=== PATIENT | female | born 1965 | race Caucasian/White ===

== ENCOUNTER 2021-07-19 14:20 | Emergency (ER) | payer BC ==
[~2021-07-19] VITALS: Ht 160 cm; Wt 123.8 kg
[2021-07-19] MEDS ORDERED: IOHEXOL 350 MG/ML 100 ML (OMNIPAQUE 350) VIAL IV ONE (14:45)
[2021-07-19] MEDS ORDERED: HOLD METFORMIN - RECEIVED CONTRAST 20 ML VIAL IV SCH (14:45)
[2021-07-19] MEDS ORDERED: ONDANSETRON 4 MG/2 ML (SDV) Z0FRAN IVP ONE (14:45)
[2021-07-19] MEDS ORDERED: NS 100 ML (IVPB) BAG IV ONE (14:45)
[2021-07-19] MEDS ORDERED: diphenhydrAMINE 50 MG/ML INJ (BENADRYL) IVP ONE (14:45)
[2021-07-19 14:49] LABS: BASOPHILS # (AUTO) 0.1 10^3/uL (0.0-0.1); BASOPHILS % (AUTO) 1 % (0-10); EOSINOPHILS # (AUTO) 0.5 10^3/uL (0.0-0.3); EOSINOPHILS % (AUTO) 4 % (0-10); HEMATOCRIT 48 % (35-52); HEMOGLOBIN 15.8 g/dL (11.5-16.0); LYMPHOCYTES # (AUTO) 3.6 10^3/uL (1.0-4.0); LYMPHOCYTES % (AUTO) 30 % (12-44); MEAN CORPUSCULAR HEMOGLOBIN 30 pg (25-34); MEAN CORPUSCULAR HGB CONC 33 g/dL (32-36); MEAN CORPUSCULAR VOLUME 91 fL (80-99); MONOCYTES # (AUTO) 0.7 10^3/uL (0.0-1.0); MONOCYTES % (AUTO) 5 % (0-12); NEUTROPHILS # (AUTO) 7.1 10^3/uL (1.8-7.8); NEUTROPHILS % (AUTO) 59 % (42-75); PLATELET COUNT 362 10^3/uL (130-400)
--- NOTE | 2021-07-19 14:50 | ED Dyspnea ---
General Stated Complaint: CHEST CT W/CONTRAST Source of Information: Patient Exam Limitations: No Limitations History of Present Illness Date Seen by Provider: Jul 19, 2021 Time Seen by Provider: 14:45 Initial Comments To ER by private vehicle with reports that she needs a CT of her chest with contrast. She follows with nurse practitioner Love Burch out of [facility]. She was diagnosed with COVID on June 17. She has ongoing dyspnea on exertion with intermittent chest pain. Her most recent episode of chest pain was 07/15/2021. It seemed to be brought about by movement while at work. She has not had any chest pain since then but she has had ongoing dyspnea with exertion. She is unvaccinated against COVID, she has hypertension and obesity. She continues to smoke 1 pack of cigarettes per day. She is concerned because she is still short of breath. Timing/Duration: 1 Week Severity: Moderate Activities at Onset: None Prior Episodes/Possible Cause: No Prior Episodes Associated Symptoms: Cough Allergies and Home Medications Allergies Coded Allergies: No Known Drug Allergies (Unverified , 07/19/21) Patient Home Medication List Home Medication List Reviewed: Yes Review of Systems Review of Systems Constitutional: see HPI; No chills, No fever EENTM: see HPI Respiratory: see HPI, cough Cardiovascular: no symptoms reported Genitourinary: no symptoms reported Musculoskeletal: no symptoms reported Skin: no symptoms reported Psychiatric/Neurological: No Symptoms Reported Endocrine: No Symptoms Reported Hematologic/Lymphatic: No Symptoms Reported Physical Exam Vital Signs Vital Signs - First Documented 07/19/21 14:37 Temp 35.9 Pulse 72 Resp 20 B/P (MAP) 159/90 (113) Pulse Ox 97 O2 Delivery Room Air Capillary Refill : Height, Weight, BMI Height: '" Weight: lbs. oz. kg; BMI Method: General Appearance: No Apparent Distress, WD/WN, Other (Oxygen is 97% on room air. Heart rate is 75.) HEENT: PERRL/EOMI, TMs Normal Neck: Full Range of Motion, Normal Inspection Respiratory: Normal Breath Sounds, No Accessory Muscle Use, No Respiratory Distress Cardiovascular: Regular Rate, Rhythm, Normal Peripheral Pulses Gastrointestinal: Normal Bowel Sounds, Non Tender, Soft Neurologic/Psychiatric: Alert, Oriented x3 Skin: Normal Color, Warm/Dry Progress/Results/Core Measures Results/Orders Lab Results Laboratory Tests Test 07/19/21 14:40 Range/Units White Blood Count 12.0 H 4.3-11.0 10^3/uL Red Blood Count 5.25 H 3.80-5.11 10^6/uL Hemoglobin 15.8 11.5-16.0 g/dL Hematocrit 48 35-52 % Mean Corpuscular Volume 91 80-99 fL Mean Corpuscular Hemoglobin 30 25-34 pg Mean Corpuscular Hemoglobin Concent 33 32-36 g/dL Red Cell Distribution Width 12.9 10.0-14.5 % Platelet Count 362 130-400 10^3/uL Mean Platelet Volume 10.0 9.0-12.2 fL Immature Granulocyte % (Auto) 1 % Neutrophils (%) (Auto) 59 42-75 % Lymphocytes (%) (Auto) 30 12-44 % Monocytes (%) (Auto) 5 0-12 % Eosinophils (%) (Auto) 4 0-10 % Basophils (%) (Auto) 1 0-10 % Neutrophils # (Auto) 7.1 1.8-7.8 10^3/uL Lymphocytes # (Auto) 3.6 1.0-4.0 10^3/uL Monocytes # (Auto) 0.7 0.0-1.0 10^3/uL Eosinophils # (Auto) 0.5 H 0.0-0.3 10^3/uL Basophils # (Auto) 0.1 0.0-0.1 10^3/uL Immature Granulocyte # (Auto) 0.1 0.0-0.1 10^3/uL Sodium Level 137 135-145 MMOL/L Potassium Level 4.0 3.6-5.0 MMOL/L Chloride Level 101 98-107 MMOL/L Carbon Dioxide Level 25 21-32 MMOL/L Anion Gap 11 5-14 MMOL/L Blood Urea Nitrogen 12 7-18 MG/DL Creatinine 0.66 0.60-1.30 MG/DL Estimat Glomerular Filtration Rate 104 BUN/Creatinine Ratio 18 Glucose Level 115 H 70-105 MG/DL Calcium Level 10.0 8.5-10.1 MG/DL Troponin I < 0.028 <0.028 NG/ML C-Reactive Protein High Sensitivity 0.32 0.00-0.50 MG/DL B-Type Natriuretic Peptide 32.3 <100.0 PG/ML Procalcitonin 0.04 <0.10 NG/ML My Orders Orders - NEREIDA ESPARZA APRN Cbc With Automated Diff (07/19/21 14:42) Hs C Reactive Protein (07/19/21 14:42) Procalcitonin (Pct) (07/19/21 14:42) Basic Metabolic Panel (07/19/21 14:42) Ed Iv/Invasive Line Start (07/19/21 14:42) Ekg Tracing (07/19/21 14:42) Ct Angio Chest W (07/19/21 14:42) Troponin I [place] (07/19/21 14:42) Bnp Marlon (07/19/21 14:42) Diphenhydramine Injection (Benadryl Inje (07/19/21 14:45) Ondansetron Injection (Zofran Injectio (07/19/21 14:45) Iohexol Injection (Omnipaque 350 Mg/Ml 1 (07/19/21 14:45) Received Contrast (Hold Metformin- Contr (07/19/21 14:45) Ns (Ivpb) (Sodium Chloride 0.9% Ivpb Bag (07/19/21 14:45) Medications Given in ED Current Medications Medications Dose Ordered Sig/Juan Ramon Route Start Time Stop Time Status Last Admin Dose Admin Diphenhydramine HCl 25 mg ONCE ONCE IVP 07/19/21 14:45 07/19/21 14:46 DC 07/19/21 15:01 25 MG Iohexol 100 ml ONCE ONCE IV 07/19/21 14:45 07/19/21 14:55 DC 07/19/21 15:22 87 ML Ondansetron HCl 4 mg ONCE ONCE IVP 07/19/21 14:45 07/19/21 14:46 DC 07/19/21 15:01 4 MG Sodium Chloride 100 ml ONCE ONCE IV 07/19/21 14:45 07/19/21 14:55 DC 07/19/21 15:22 80 ML Vital Signs/I&O 07/19/21 14:37 Temp 35.9 Pulse 72 Resp 20 B/P (MAP) 159/90 (113) Pulse Ox 97 O2 Delivery Room Air Departure Communication (Admissions) Family Conversation EKG shows sinus rhythm, normal intervals, no ectopy, no ST segment change. NAME: RAFFAELE PIEDRA MED REC#: [id number] PT STATUS: REG ER : 1965 PHYSICIAN: NEREIDA ESPARZA APRN ADMIT DATE: 07/19/21/ER Draft Date of Exam:07/19/21 CT ANGIO CHEST W PROCEDURE: CT angiography of the chest with contrast. TECHNIQUE: Multiple contiguous axial images were obtained through the chest after uneventful bolus administration of intravenous contrast. 3D reconstructed CTA MIP acquisitions were also performed. Auto Exposure Controls were utilized during the CT exam to meet ALARA standards for radiation dose reduction. INDICATION: Shortness of breath. Elevated D-dimer. Recent pneumonia. COMPARISON: None. FINDINGS: This helical CT pulmonary angiogram is diagnostic to the subsegmental level branches of the pulmonary artery and demonstrates no pulmonary emboli. The heart and great vessels are unremarkable. There is no pericardial effusion. There is no axillary, mediastinal or hilar adenopathy. The lungs demonstrate no consolidation, nodules or other parenchymal abnormality. No pleural effusion is seen. Osseous structures appear normal. There is hepatic steatosis. IMPRESSION: 1. No acute pulmonary embolus. Negative CT chest. 2. Hepatic steatosis. Dictated on workstation # [id number] Dict: 07/19/21 1532 Trans: 07/19/21 1536 [facility] [id number] Interpreted by: HEIDE CLAROS DO Electronically signed by: Impression Primary Impression: WEBER (dyspnea on exertion) Additional Impression: Post-COVID chronic dyspnea Disposition: 01 HOME, SELF-CARE Condition: Stable Departure-Patient Inst. Decision time for Depature: 15:39 Referrals: NO,LOCAL PHYSICIAN (PCP) Primary Care Physician Patient Instructions: Shortness of Breath, Adult ED Add. Discharge Instructions: 1. Medication as directed. Return to ER for any concerns. Take the steroids as directed. Follow-up with your doctor next week. Scripts Prednisone (Prednisone) 20 Mg Tab 40 MG PO DAILY, #6 TAB 0 Refills Prov: NEREIDA ESPARZA APRN 07/19/21 NEREIDA ESPARZA APRN Jul 19, 2021 14:49
[2021-07-19 15:02] LABS: CHLORIDE 101 MMOL/L (98-107); SODIUM 137 MMOL/L (135-145)
[2021-07-19 15:04] LABS: GLUCOSE 115 MG/DL (70-105)
[2021-07-19 15:05] LABS: CARBON DIOXIDE 25 MMOL/L (21-32)
[2021-07-19 15:07] LABS: CREATININE SERUM 0.66 MG/DL (0.60-1.30); GFR ESTIMATED 104
[2021-07-19 15:09] LABS: BUN/CREATININE RATIO 18
--- NOTE | 2021-07-19 15:36 | Diagnostic Imaging Report ---
PROCEDURE: CT angiography of the chest with contrast. TECHNIQUE: Multiple contiguous axial images were obtained through the chest after uneventful bolus administration of intravenous contrast. 3D reconstructed CTA MIP acquisitions were also performed. Auto Exposure Controls were utilized during the CT exam to meet ALARA standards for radiation dose reduction. INDICATION: Shortness of breath. Elevated D-dimer. Recent pneumonia. COMPARISON: None. FINDINGS: This helical CT pulmonary angiogram is diagnostic to the subsegmental level branches of the pulmonary artery and demonstrates no pulmonary emboli. The heart and great vessels are unremarkable. There is no pericardial effusion. There is no axillary, mediastinal or hilar adenopathy. The lungs demonstrate no consolidation, nodules or other parenchymal abnormality. No pleural effusion is seen. Osseous structures appear normal. There is hepatic steatosis. IMPRESSION: 1. No acute pulmonary embolus. Negative CT chest. 2. Hepatic steatosis. Dictated by: Dictated on workstation # [id number]
[2021-07-19] MEDS ORDERED: PRD20T PO (15:41)
[2021-07-19 15:52] VITALS: BP 114/55
== END 2021-07-19 15:52 | disposition home or self-care (01) ==
LOC: EDUNIT# 14:20 → ER 14:23
DX: R06.09 Other forms of dyspnea (principal); U09.9 Post COVID-19 condition, unspecified; I10 Essential (primary) hypertension; E66.9 Obesity, unspecified; F17.210 Nicotine dependence, cigarettes, uncomplicated
CPT/HCPCS: 36415; 71275; 80048; 83880; 84145; 84484; 85025; 86141; 93005

== ENCOUNTER → 2021-10-19 | Outpatient (CLI) | payer BC ==
[~2021-10-19] MED LIST: PRD20T PO
--- NOTE | 2021-10-19 11:15 | Diagnostic Imaging Report ---
EXAM: HAND 3 VIEW RIGHT INDICATION: Fall. Right hand pain. COMPARISON: None. FINDINGS: No fractures or malalignment. Scattered degenerative changes in the IP joints are greatest in the right 3rd DIP. Soft tissue shadows are unremarkable. IMPRESSION: No acute radiographic findings in the right hand. Dictated by: Dictated on workstation # [id number]
== END ==
LOC: RAD FS 10:18
PROVIDERS: ATTEND Nurse Practitioner Community Health
DX: M79.641 Pain in right hand (principal); W19.XXXA Unspecified fall, initial encounter
CPT/HCPCS: 73130

== ENCOUNTER 2022-08-06 02:28 | Emergency (ER) | payer OTHER, BC ==
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
[2022-08-06 03:18] VITALS: BP 178/59
--- NOTE | 2022-08-06 07:03 | Diagnostic Imaging Report ---
EXAMINATION: CT head without contrast. TECHNIQUE: Multiple contiguous axial images were obtained through the brain without the use of intravenous contrast. All CT scans use one or more of the following dose optimizing techniques: automated exposure control, MA and/or KvP adjustment based on patient size and exam type or iterative reconstruction. HISTORY: Head pain after injury COMPARISON: None available. FINDINGS: The ventricles and sulci are normal. No abnormal attenuation of brain parenchyma is present. No acute intracranial hemorrhage or abnormal extra-axial fluid collections are present. No hyperdense vessel. The calvarium is intact. The mastoid air cells are clear. There is mucosal thickening of the paranasal sinuses. The orbits are normal. IMPRESSION: 1. No acute intracranial abnormality. 2. Agree with preliminary interpretation. Dictated by: Dictated on workstation # [id number]
== END 2022-08-06 03:20 | disposition home or self-care (01) ==
LOC: EDUNIT# 02:28 → ER FS 02:31
DX: S06.0X0A Concussion without loss of consciousness, initial encounter (principal); Z28.310 Unvaccinated for COVID-19; W22.8XXA Striking against or struck by other objects, initial encounter; Y92.59 Other trade areas as the place of occurrence of the external cause; Y99.0 Civilian activity done for income or pay
CPT/HCPCS: 70450

== ENCOUNTER 2022-10-06 23:09 | Emergency (ER) | payer BC, OTHER ==
[~2022-10-06] VITALS: Ht 160 cm; Wt 132.0 kg
[2022-10-06 23:09] VITALS: BP 178/56
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
[2022-10-07] MEDS ORDERED: CEFD300C3 PO (03:03)
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
== END 2022-10-07 00:20 | disposition home or self-care (01) ==
LOC: EDUNIT# 23:16 → ER FS 23:18
DX: S30.1XXA Contusion of abdominal wall, initial encounter (principal); S40.011A Contusion of right shoulder, initial encounter; E66.9 Obesity, unspecified; Z79.82 Long term (current) use of aspirin; Z68.41 Body mass index [BMI] 40.0-44.9, adult; Z28.310 Unvaccinated for COVID-19; V89.2XXA Person injured in unspecified motor-vehicle accident, traffic, initial encounter; Y92.410 Unspecified street and highway as the place of occurrence of the external cause
CPT/HCPCS: 73000